=== PATIENT | female | born 1990 | race Two or more races ===

== ENCOUNTER 2024-07-05 11:41 | Emergency (ER) | payer MEDICAID, SELFPAY ==
[2024-07-05 11:43] VITALS: BMI 36.9
[2024-07-05 12:20] VITALS: BP 114/71; PULSE 83; RESP 18; TEMP 36.9; O2SAT 97
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
[2024-07-05] MEDS: oxyCODONE/APAP 5/325 TABLET 1 TAB PO (12:50)
[2024-07-05] MEDS: HYDROcodone/APAP 10/325 TAB PO (12:50)
--- NOTE | 2024-07-05 13:06 | XR_ITS ---
Examination: PA chest single view Technique: Upright PA chest single view Exam date and time: July 05, 2024 1310 hrs. Indications: Coughing beginning one week ago. Findings: Normal heart size Lungs are clear. Osseous structures are intact Impression: No active disease
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
== END 2024-07-05 14:14 | disposition home or self-care (01) ==
PROVIDERS: Emergency Provider Emergency Medicine; PCP Family Medicine
DX: S62.662A Nondisplaced fracture of distal phalanx of right middle finger, initial encounter for closed fracture (principal); S62.664A Nondisplaced fracture of distal phalanx of right ring finger, initial encounter for closed fracture; R05.9 Cough, unspecified; V86.55XA Driver of 3- or 4- wheeled all-terrain vehicle (ATV) injured in nontraffic accident, initial encounter
CPT/HCPCS: 71045; 73130; 99283; A9270